=== PATIENT | female | born 1995 | race Caucasian/White ===

== ENCOUNTER 2016-09-30 11:06 | Emergency (ER) | payer BC, OTHER ==
[~2016-09-30] VITALS: Ht 147.3 cm; Wt 54.8 kg
[2016-09-30 11:09] VITALS: TEMP 36.7; Ht 147.3 cm; Wt 54.8 kg
[2016-09-30] MEDS: HYDROmorphone INJ 1 MG/ML SYR IV STA ×2 (11:23→11:51)
[2016-09-30] MEDS ORDERED: METOCLOPRAMIDE HCL INJ 5 MG/ML 2 ML VIAL IV STA (11:23)
[2016-09-30] MEDS ORDERED: KETOROLAC TROMETHAMINE 30 MG/ML VIAL IV STA (11:23)
[2016-09-30] MEDS ORDERED: SODIUM CHLORIDE 0.9% 1000ML 1,000 ML IV STA (11:23)
[2016-09-30] MEDS ORDERED: CEFTRIAXONE SOD INJ 1 GM ADDVIAL IV STA (11:40)
--- NOTE | 2016-09-30 11:43 | EMERGENCY ROOM VISIT NOTE ---
History Report prepared by Teresa: Esperanza Kramer Under the Supervision of: Dr. Basilio Gamboa M.D. First contact with patient: 11:14 Chief Complaint: ABDOMINAL PAIN Stated Complaint: ABD. PAIN History of Present Illness The patient is a 20 year old female who presents to the Emergency Room with complaints of persistent lower abdominal pain that started yesterday. She rates her discomfort as a 9/10 in severity. She has not taken any medication for her pain yet. She also complains of an increased feeling of urgency to urinate and some intermittent nausea and vomiting for the past day. The patient reports she went to a local urgent care clinic this morning and was sent to the ED because she was in "so much pain". She denies any chance of and states her LMP was last month and normal. She denies any prior history of abdominal surgeries. She has never experienced a kidney stone before but admits to a family history of stones. She denies any back pain. Source of History: patient Onset: yesterday Position: abdomen Symptom Intensity: 9/10 Timing: other (persistent) Associated Symptoms: + nausea, + vomiting, No back pain Review of Systems See HPI for pertinent positives & negatives. A total of 10 systems reviewed and were otherwise negative. Family History Kidney stones Social History Smoking Status: Never Smoker Alcohol Use: occasionally Drug Use: none Marital Status: in relationship Housing Status: lives with family Occupation Status: employed Current/Historical Medications Scheduled Ondasetron Odt (Zofran Odt), 4 MG SL Q6H Sulfa/Trimethoprim (Bactrim Ds 800MG/160MG), 1 TAB PO BID Tamsulosin Hcl (Flomax), 0.4 MG PO HS Scheduled PRN Oxycodone/Acetaminophen 5MG/325MG (Percocet 5MG/325MG), 1-2 TAB PO Q4H PRN for Pain Allergies Coded Allergies: No Known Allergies (Unverified , 09/30/16) Physical Exam Vital Signs Date Time Temp Pulse Resp B/P (MAP) Pulse Ox O2 Delivery O2 Flow Rate FiO2 09/30/16 12:26 91 16 117/68 95 09/30/16 12:13 86 09/30/16 11:09 36.7 86 16 136/91 100 Room Air Physical Exam GENERAL: Patient is a healthy-appearing well-nourished 20 year old female. HEAD: Normocephalic atraumatic EYES: Ocular movements intact pupils equal and react to light OROPHARYNX mucous membranes are moist no exudates present no erythema or edema present NECK: Supple no nuchal rigidity CHEST: Good equal expansion LUNGS: Clear and equal to auscultation CARDIAC: Normal S1 and S2 ABDOMEN: Soft nontender no guarding BACK: No CVA tenderness EXTREMITIES: No pain upon palpation normal muscle strength in all groups no clubbing cyanosis or edema NEURO: Patient is following commands is answering questions appropriately. Alert and oriented x3 Cranial Nerves 2-12 grossly intact Medical Decision & Procedures ER Provider Diagnostic Interpretation: Radiology results as stated below per my review and radiologist interpretation: CT SCAN OF THE ABDOMEN AND PELVIS WITHOUT CONTRAST CLINICAL HISTORY: Left flank pain COMPARISON STUDY: No previous studies for comparison. TECHNIQUE: CT scan of the abdomen and pelvis was performed from the lung bases to the proximal femurs. Images are reviewed in the axial, sagittal, and coronal planes. IV contrast was not administered for this examination. CT DOSE: 402.53 mGy.cm FINDINGS: Lower chest: The heart is normal in size and configuration, without pericardial effusion. The lung bases and pleural spaces are clear. Liver: The unenhanced liver is normal in size, contour, and attenuation. There is no intrahepatic biliary ductal dilatation. Gallbladder: Unremarkable. Spleen: Normal in size and attenuation. Pancreas: Unremarkable. Adrenal glands: Unremarkable. Kidneys: There are punctate nonobstructing right renal calculi. There is mild left-sided hydronephrosis with left-sided perinephric stranding. There is a 2.5 mm left pelvic basin calcification, likely representing a distal left ureteral calculus. Bowel: There are no transition zones indicate bowel obstruction. There is no acute diverticulitis. There is no acute appendicitis. Peritoneum: No free air is visualized. There is trace free pelvic fluid Vasculature: The abdominal aorta is normal in course and caliber. Adenopathy: None. Pelvic viscera: The bladder, and pelvic viscera are unremarkable. Skeletal structures: No destructive osseous lesions are seen. IMPRESSION: 1. Right-sided nephrolithiasis 2. Left-sided hydronephrosis and hydroureter. 2.5 mm left pelvic basin calcification, likely representing an obstructing distal left ureteral calculus. 3. No evidence of bowel obstruction. No evidence of free air. Electronically signed by: Joshua Da Silva M.D. 09/30/2016 11:53 AM Laboratory Results 09/30/16 10:50 Red Blood Count 4.49, Mean Corpuscular Volume 86.0, Mean Corpuscular Hemoglobin 29.6, Mean Corpuscular Hemoglobin Concent 34.5, Mean Platelet Volume 10.4, Neutrophils (%) (Auto) 79.0, Lymphocytes (%) (Auto) 13.8, Monocytes (%) (Auto) 6.3, Eosinophils (%) (Auto) 0.3, Basophils (%) (Auto) 0.3, Neutrophils # (Auto) 11.36, Lymphocytes # (Auto) 1.99, Monocytes # (Auto) 0.90, Eosinophils # (Auto) 0.05, Basophils # (Auto) 0.04 09/30/16 10:50 Test 09/30/16 10:50 09/30/16 11:19 White Blood Count 14.38 K/uL (4.8-10.8) Red Blood Count 4.49 M/uL (4.2-5.4) Hemoglobin 13.3 g/dL (12.0-16.0) Hematocrit 38.6 % (37-47) Mean Corpuscular Volume 86.0 fL (80-100) Mean Corpuscular Hemoglobin 29.6 pg (25-34) Mean Corpuscular Hemoglobin Concent 34.5 g/dl (32-36) Platelet Count 295 K/uL (130-400) Mean Platelet Volume 10.4 fL (7.4-10.4) Neutrophils (%) (Auto) 79.0 % Lymphocytes (%) (Auto) 13.8 % Monocytes (%) (Auto) 6.3 % Eosinophils (%) (Auto) 0.3 % Basophils (%) (Auto) 0.3 % Neutrophils # (Auto) 11.36 K/uL (1.4-6.5) Lymphocytes # (Auto) 1.99 K/uL (1.2-3.4) Monocytes # (Auto) 0.90 K/uL (0.11-0.59) Eosinophils # (Auto) 0.05 K/uL (0-0.5) Basophils # (Auto) 0.04 K/uL (0-0.2) RDW Standard Deviation 41.6 fL (36.4-46.3) RDW Coefficient of Variation 13.0 % (11.5-14.5) Immature Granulocyte % (Auto) 0.3 % Immature Granulocyte # (Auto) 0.04 K/uL (0.00-0.02) Anion Gap 11.0 mmol/L (3-11) Est Creatinine Clear Calc Drug Dose 75.4 ml/min Estimated GFR () 110.4 Estimated GFR (Non- 95.3 BUN/Creatinine Ratio 13.6 (10-20) Calcium Level 9.0 mg/dl (8.5-10.1) Total Bilirubin 0.4 mg/dl (0.2-1) Direct Bilirubin 0.1 mg/dl (0-0.2) Aspartate Amino Transf (AST/SGOT) 12 U/L (15-37) Alanine Aminotransferase (ALT/SGPT) 16 U/L (12-78) Alkaline Phosphatase 57 U/L (45-117) Total Protein 7.2 gm/dl (6.4-8.2) Albumin 4.0 gm/dl (3.4-5.0) Lipase 92 U/L (73-393) Urine Test NEG (NEG) Labs reviewed by ED physician. Medications Administered Medications (Trade) Dose Ordered Sig/Yessenia Route Start Time Stop Time Status Last Admin Dose Admin Sodium Chloride 1,000 ml @ 999 mls/hr Q1H1M STAT IV 09/30/16 11:23 09/30/16 12:23 DC 09/30/16 11:51 999 MLS/HR Ketorolac Tromethamine (Toradol Inj) 30 mg NOW STAT IV 09/30/16 11:23 09/30/16 11:26 DC 09/30/16 11:51 30 MG Metoclopramide HCl (Reglan Inj) 10 mg NOW STAT IV 09/30/16 11:23 09/30/16 11:26 DC 09/30/16 11:51 10 MG Ceftriaxone Sodium (Rocephin Inj) 1 gm NOW STAT IV 09/30/16 11:40 09/30/16 11:41 DC 09/30/16 11:51 1 GM Tamsulosin HCl (Flomax Cap) 0.4 mg NOW STAT PO 09/30/16 12:06 09/30/16 12:07 DC 09/30/16 12:14 0.4 MG Trimethoprim/ Sulfamethoxazole (Septra Ds 800/ 160MG Tab) 1 tab NOW STAT PO 09/30/16 12:06 09/30/16 12:07 DC 09/30/16 12:15 1 TAB ED Course 1115: Past medical records reviewed. The patient was evaluated in room C3. A complete history and physical examination was performed. 1123: Reglan 10 mg IV, Toradol 30 mg IV, NSS 1000 ml @ 999 mls/hr IV. 1140: Rocephin 1 gm IV. 1206: Septra Ds 800/160 mg 1 tab PO, Flomax 0.4 mg PO. 1215: I reevaluated the patient. She is feeling much better. I discussed her results and discharge instructions and she verbalized complete understanding and agreement. Medical Decision Medication Reconciliation: I attest that I have personally reviewed the patient' s current medication list Blood Pressure Screening: Patient was found to have an elevated blood pressure and was referred to their primary care doctor for recheck and further treatment Prior records/ancillary studies reviewed. Triage Nursing notes reviewed. The patient's history was concerning for kidney pain. Differential diagnosis: Etiologies such as renal colic, appendicitis, diverticulitis, mesenteric ischemia, aortic pathology, infections, inflammatory bowel disease, PUD, biliary pathology, UTI, as well as others were entertained. This is a 20-year-old female who presents to the emergency department complaining of left flank pain. Because of the patient's nausea and vomiting she was sent for CAT scan of the abdomen which was concerning for a 2.5 mm stone. I do believe that the patient is just about the pass this stone. An IV was established, patient given normal saline bolus, Toradol, Dilaudid, Zofran. Repeat examination revealed much improvement patient's symptoms. I do believe that the patient is well enough to be discharged home for follow-up with his primary care physician. Patient was in agreement with the treatment plan. Impression Primary Impression: Kidney stone on left side Scribe Attestation The scribe's documentation has been prepared under my direction and personally reviewed by me in its entirety. I confirm that the note above accurately reflects all work, treatment, procedures, and medical decision making performed by me. Departure Information Dispostion Home / Self-Care Prescriptions Tamsulosin Hcl (FLOMAX) 0.4 Mg Cap 0.4 MG PO HS for 10 Days, #10 CAP Prov: Basilio Gamboa MD 09/30/16 Ondasetron Odt (ZOFRAN ODT) 4 Mg Tab 4 MG SL Q6H for Nausea, #6 TAB Prov: Basilio Gamboa MD 09/30/16 Sulfa/Trimethoprim (Bactrim Ds 800MG/160MG) Tab 1 TAB PO BID for 10 Days, #20 TAB Prov: Basilio Gamboa MD 09/30/16 Oxycodone/Acetaminophen 5MG/325MG (PERCOCET 5MG/325MG) Tab 1-2 TAB PO Q4H Y for Pain, #14 TAB Prov: Basilio Gamboa MD 09/30/16 Referrals No Doctor, Assigned (PCP) Patient Instructions ED Stone Kidney Undescended No Sx, ED Stone Renal Passed, Kidney Stones Eval, Kidney Stones Expectant Therapy, Kidney Stones Prevent, Kidney Stones Risk, [facility] Additional Instructions Follow up with DR Vega's office Return for fevers or out of control pain You were found to have an elevated blood pressure today (>120 sytolic or >90 diastolic). Per medicare guidelines, you need to follow up with this blood pressure screening with your Primary Care Physician (PCP). For a new PCP call [phone]. You received narcotic or benzodiazepene medication while in the emergency room today. Do not drive, operate heavy machinery, or drink alcohol under the influence of this medication. Take Alieve as directed Take Percocet for breakthrough pain Culture results are usually available in approx 48 hours You have been examined and treated today on an emergency basis only. This is not a substitute for, or an effort to provide, complete comprehensive medical care. It is impossible to recognize and treat all injuries or illnesses in a single emergency department visit. It is therefore important that you follow up closely with your PCP. Call as soon as possible for an appointment. Thank you for your time and consideration. I look forward to speaking with you again soon. Please don't hesitate to call us if you have any questions.
--- NOTE | 2016-09-30 11:55 | DIAGNOSTIC IMAGING REPORT ---
CT SCAN OF THE ABDOMEN AND PELVIS WITHOUT CONTRAST CLINICAL HISTORY: Left flank pain COMPARISON STUDY: No previous studies for comparison. TECHNIQUE: CT scan of the abdomen and pelvis was performed from the lung bases to the proximal femurs. Images are reviewed in the axial, sagittal, and coronal planes. IV contrast was not administered for this examination. CT DOSE: 402.53 mGy.cm FINDINGS: Lower chest: The heart is normal in size and configuration, without pericardial effusion. The lung bases and pleural spaces are clear. Liver: The unenhanced liver is normal in size, contour, and attenuation. There is no intrahepatic biliary ductal dilatation. Gallbladder: Unremarkable. Spleen: Normal in size and attenuation. Pancreas: Unremarkable. Adrenal glands: Unremarkable. Kidneys: There are punctate nonobstructing right renal calculi. There is mild left-sided hydronephrosis with left-sided perinephric stranding. There is a 2.5 mm left pelvic basin calcification, likely representing a distal left ureteral calculus. Bowel: There are no transition zones indicate bowel obstruction. There is no acute diverticulitis. There is no acute appendicitis. Peritoneum: No free air is visualized. There is trace free pelvic fluid Vasculature: The abdominal aorta is normal in course and caliber. Adenopathy: None. Pelvic viscera: The bladder, and pelvic viscera are unremarkable. Skeletal structures: No destructive osseous lesions are seen. IMPRESSION: 1. Right-sided nephrolithiasis 2. Left-sided hydronephrosis and hydroureter. 2.5 mm left pelvic basin calcification, likely representing an obstructing distal left ureteral calculus. 3. No evidence of bowel obstruction. No evidence of free air. Electronically signed by: Joshua Da Silva M.D. 09/30/2016 11:53 AM Dictated Date/Time: 09/30/2016 11:49 AM
[2016-09-30 12:05] LABS: BASO % 0.3 %; BASO ABS # 0.04 K/uL (0-0.2); COMPLETE YES; EOS % 0.3 %; HEMATOCRIT 38.6 % (37-47); IG% 0.3 %; LYMPH % 13.8 %; LYMPH ABS # 1.99 K/uL (1.2-3.4); MEAN CORPUSCULAR HEMOGLOBIN 29.6 pg (25-34); MEAN CORPUSCULAR HGB CONC 34.5 g/dl (32-36); MEAN PLATELET VOLUME 10.4 fL (7.4-10.4); MONO % 6.3 %; PLATELET COUNT 295 K/uL (130-400); RED BLOOD COUNT 4.49 M/uL (4.2-5.4); WHITE BLOOD COUNT 14.38 K/uL (4.8-10.8)
[2016-09-30] MEDS ORDERED: SULFAMETHOXAZOLE/TRIMETHOPRIM DS 800/160MG TAB PO STA (12:06)
[2016-09-30] MEDS ORDERED: TAMSULOSIN HCL 0.4 MG CAP PO STA (12:06)
[2016-09-30] MEDS ORDERED: ONDA4TAB10 SL (12:14)
[2016-09-30] MEDS ORDERED: OXYC-57 PO (12:14)
[2016-09-30] MEDS ORDERED: TAMS0.4C38 PO (12:14)
[2016-09-30] MEDS ORDERED: SULF800T23 PO (12:14)
[2016-09-30 12:26] VITALS: BP 117/68; PULSE 91; O2SAT 95
[2016-09-30 12:28] LABS: BUN/CREATININE RATIO 13.6 (10-20); CREATININE 0.88 mg/dl (0.60-1.20); POTASSIUM 3.3 mmol/L (3.5-5.1)
== END 2016-09-30 12:48 | disposition home or self-care (01) ==
LOC: C.EDB 11:09 → C.EDC 12:48
DX: N20.0 Calculus of kidney (principal); Z84.1 Family history of disorders of kidney and ureter

== ENCOUNTER → 2017-11-21 | Outpatient (CLI) | payer OTHER | END | disposition home or self-care (01) | LOC: C.LAB1850 09:11 | PROVIDERS: ATTEND Obstetrics & Gynecology | DX: Z34.02 Encounter for supervision of normal first pregnancy, second trimester (principal) ==

== ENCOUNTER → 2017-11-28 | Outpatient (CLI) | payer OTHER | END | disposition home or self-care (01) | LOC: C.LAB1850 08:14 | PROVIDERS: ATTEND Obstetrics & Gynecology | DX: O28.1 Abnormal biochemical finding on antenatal screening of mother (principal) ==